=== PATIENT | female | born 1970 | race Two or more races ===

== ENCOUNTER → 2025-05-25 | Outpatient (CLI) | payer MEDICARE, MEDICAID, SELFPAY ==
--- NOTE | 2025-05-25 10:00 | XR_ITS ---
Examination: Breast ultrasound complete, bilateral Date and time of exam: May 25, 2025 11:10 AM INDICATIONS: Mammogram September 25, 2024 18 mm round nodule nipple level left breast posterior depth, 21 mm nodule retroareolar region right breast Technique: Real-time grayscale ultrasonographic imaging bilateral breasts, including all 4 quadrants as well as nipple retroareolar and axillary regions. Findings: Sonographic images right breast 3:00 cyst 6 x 6 mm 3:00 calcification 2 x 2 mm 10:00 cyst 11 x 8 mm No solid nodules Sonographic images left breast 9:00 cyst 8 x 7 mm Retroareolar mass versus glandular tissue 7 x 5 x 7 mm IMPRESSION: BI-RADS Category 3: Probably benign findings One additional 6 month left breast sonogram follow-up is needed to document stability of nodule versus glandular tissue retroareolar region left breast
--- NOTE | 2025-05-25 11:00 | XR_ITS ---
Examination: Diagnostic digital mammography, bilateral Computer aided detection 3-D breast Tomosynthesis, bilateral Date and time of exam: May 25, 2025 1134 hours INDICATIONS: Mammogram September 25, 2024 18 mm nodule nipple level left breast posterior depth, 21 mm oval mass retroareolar region right breast Technique: Nonmagnified MLO, CC views of the breasts to been obtained, reconstructed from 3-D Tomosynthesis images. R2 computer aided detection program utilized for evaluation of suspicious masses and/or abnormal calcifications. 3-D Tomosynthesis images obtained. Findings: The breasts are heterogeneously dense, which may obscure small masses Focal asymmetry is confirmed in the retroareolar region right breast on the spot compression views. Focal asymmetry remains nipple level left breast on the MLO spot compression view Impression: BI-RADS Category 3: Probably benign findings One additional 6 month bilateral mammography follow-up needed to document stability of focal asymmetries described above.
== END | disposition home or self-care (01) ==
LOC: CDIM 10:50
PROVIDERS: PCP Nurse Practitioner Primary Care; Referring Provider Nurse Practitioner Primary Care; Visit Provider Nurse Practitioner Primary Care
DX: R92.333 Mammographic heterogeneous density, bilateral breasts (principal); N64.89 Other specified disorders of breast; N60.11 Diffuse cystic mastopathy of right breast; N63.25 Unspecified lump in the left breast, overlapping quadrants
CPT/HCPCS: 76641; 77062; 77066; G0279